=== PATIENT | male | born 1995 | race Caucasian/White ===

== ENCOUNTER 2017-03-28 19:35 | Emergency (ER) | payer OTHER ==
[~2017-03-28] VITALS: Ht 182.9 cm; Wt 118.8 kg
[~2017-03-28 19:35] MED LIST: ALBUTEROL2.5 MG/31 IN; ALEVE220 M1; AMOXICILLIN/CL875 MG PO; ASMANEX 30110 MCG IN; AUGMENTIN875TAB PO; CLARITIN10 M1 OR; CLARITIN10 M1 PO; FLONASE NASAL50 MCG; MIRALAX3350 N1 PO; MONTELUKAST SOD10 MG PO; NASONEX50 MCG/AC; PERCOCET 5/325M1 TAB PO; PROAIR HFA IN; PROVENTIL INH17 GM IN; PULMICORT0.25 MG/2 IN; SINGULAIR PO; ULTRAM50 M1 PO; ZOFRAN ODT8 MG SL
--- NOTE | 2017-03-28 21:02 | NUR ---
breathing treatment given. breathing tech. for good deposition to the lungs.
[2017-03-28 21:15] LABS: INFLUENZA A POSITIVE (NONE DETECT); INFLUENZA B NONE DETECTED (NONE DETECT)
[2017-03-28 21:19] LABS: HEMATOCRIT 44.1 % (39.0-50.0); HEMOGLOBIN 15.6 g/dl (14.0-18.0); IMMATURE GRANULOCYTES 0.3 % (0.0-1.0); MEAN CORPUSCULAR HGB 30.8 pG CALC (26.0-32.0); MEAN CORPUSCULAR HGB CONC 35.4 g/L CALC (32.0-36.0); NEUT# 4.7 thou/uL (1.82-7.42); RED BLOOD COUNT 5.07 mill/uL (4.70-6.10); RED CELL DISTRI WIDTH 11.9 % (11.5-15.5)
[2017-03-28] MEDS ORDERED: TAM75CAP PO (21:35)
[2017-03-28] MEDS ORDERED: MEDDOSEPAK PO (21:35)
[2017-03-28] MEDS ORDERED: ALBUTEROL SUL0.083 % IN (21:39)
[2017-03-28 21:50] VITALS: BP 128/77
== END 2017-03-28 22:01 | disposition home or self-care (01) | DRG 153 ==
LOC: ED 19:35
PROVIDERS: Emergency Medicine
DX: J11.1 Influenza due to unidentified influenza virus with other respiratory manifestations (principal); J45.909 Unspecified asthma, uncomplicated; F17.220 Nicotine dependence, chewing tobacco, uncomplicated